=== PATIENT | male | born 1980 | race Two or more races ===

== ENCOUNTER 2021-10-20 01:36 | Emergency (ER) | payer SELFPAY ==
[~2021-10-20] VITALS: Ht 182.9 cm; Wt 100.0 kg
[2021-10-20 01:38] VITALS: BP 161/89
== END 2021-10-20 03:00 | disposition left against medical advice (07) ==
LOC: ER 01:36
DX: S01.80XA Unspecified open wound of other part of head, initial encounter (principal); S09.8XXA Other specified injuries of head, initial encounter; W50.1XXA Accidental kick by another person, initial encounter; Y93.89 Activity, other specified; Y92.89 Other specified places as the place of occurrence of the external cause; Y99.8 Other external cause status
CPT/HCPCS: 99283